=== PATIENT | female | born 1935 | race Caucasian/White ===

== ENCOUNTER → 2016-11-09 | Outpatient (CLI) | payer OTHER ==
--- NOTE | 2016-11-09 17:25 | MA ---
Screening Digital Mammogram Clinical Indications: Routine screening. Daughter with history of breast cancer. Technique: Standard cephalocaudal and mediolateral oblique projections are obtained. This examinatio n is processed by the [employer] computer aided detection system. Comparison: June 05, 2013; December 07, 2010. Breast density: C; The breasts are heterogeneously dense, which may obscure small masses. Findings: CAD was reviewed. There are no new masses, new clusters of microcalcifications, or significant axillary lymphadenopathy . Moderate vascular calcifications are once again noted. These have progressed. Impression: Negative mammogram. BI-RADS 1. Recommendation: Routine screening mammogram is recommended in one year. Dense mammographic pattern limits the sensitivity of mammography in this patient. If there is a clini josh palpable abnormality, recommend additional imaging with ultrasound if clinically indicated. [facility] will send a result letter to the patient. Negative mammography should not preclude additional workup of a clinically suspicious finding. The patient's information is entered into a reminder system with a target due date for her next mammo gram.
== END ==
LOC: BRMIMAGING 13:42
PROVIDERS: ATTEND Physician Assistant Medical
DX: Z12.31 Encounter for screening mammogram for malignant neoplasm of breast (principal); Z80.3 Family history of malignant neoplasm of breast
CPT/HCPCS: G0202

== ENCOUNTER → 2017-08-15 | Outpatient (CLI) | payer OTHER | LOC: BRMIMAGING 13:29 | DX: M79.1 Myalgia (principal) | CPT/HCPCS: 73521-PO ==

== ENCOUNTER → 2017-11-29 | Outpatient (CLI) | payer OTHER | LOC: BRMIMAGING 13:07 | PROVIDERS: ATTEND Family Medicine | DX: Z12.31 Encounter for screening mammogram for malignant neoplasm of breast (principal) ==

== ENCOUNTER → 2018-12-03 | Outpatient (CLI) | payer OTHER | LOC: BRMIMAGING 13:06 | PROVIDERS: ATTEND Physician Assistant | DX: Z12.31 Encounter for screening mammogram for malignant neoplasm of breast (principal); Z80.3 Family history of malignant neoplasm of breast ==